=== PATIENT | male | born 1950 | race Caucasian/White ===

== ENCOUNTER 2017-12-01 19:43 | Inpatient (IN) | payer MEDICARE, OTHER ==
[~2017-12-01] VITALS: Ht 175.3 cm; Wt 127.1 kg
[~2017-12-01 19:43] MED LIST: ATOR40TA; Aspir 8181 MG; Ativan1 MG PO; CEPH500 PO; ENAL2.5; ESOM20 PO; FURO20; HYDR10 PO; Humalog100 UNIT/1 SC; INSDET100 SC; LOSARTAN POTAS100 MG PO; METO25ER PO; OMEP20ER; PIOG30 PO; ROSI4; SACC250C PO; SPIHYD PO; TAMS.4ER PO; VERA240ERA
[2017-12-01] MEDS ORDERED: FURO20 PO (19:52)
[2017-12-01 20:11] LABS: BASOPHILS ABSOLUTE AUTO 0.04 K/mm3 (0.00-0.23); BASOPHILS PERCENT AUTO 1 % (0-2); EOSINOPHILS ABSOLUTE AUTO 0.13 K/mm3 (0.00-0.68); EOSINOPHILS PERCENT AUTO 2 % (0-6); Hematocrit 43.9 % (37.0-53.0); Hemoglobin 14.9 g/dL (13.5-17.5); IMMATURE GRAN ABSOLUTE AUTO 0.02 K/mm3 (0.00-0.10); IMMATURE GRAN PERCENT AUTO 0 % (0-1); LYMPHOCYTES ABSOLUTE AUTO 1.63 K/mm3 (0.84-5.20); LYMPHOCYTES PERCENT AUTO 28 % (21-46); MONOCYTES ABSOLUTE AUTO 0.75 K/mm3 (0.16-1.47); MONOCYTES PERCENT AUTO 13 % (4-13); Mean Corpuscular HGB 30.2 pg (26.0-34.0); Mean Corpuscular HGB Conc 33.9 g/dL (31.5-36.5); Mean Corpuscular Volume 89 fL (80-100); Mean Platelet Volume 10.2 fL (9.1-12.4); NEUTROPHILS ABSOLUTE AUTO 3.18 K/mm3 (1.96-9.15); NEUTROPHILS PERCENT AUTO 55 % (41-73); Platelet Count 206 K/mm3 (150-400); RDW Coefficient Variation 12.3 % (11.7-14.2); RDW Standard Deviation 40.1 fL (35.1-46.3); Red Blood Cell Count 4.94 M/mm3 (4.30-5.90); White Blood Cell Count 5.75 K/mm3 (4.00-11.30)
[2017-12-01 20:25] LABS: Alanine Aminotransfer (ALT/SGP 21 U/L (12-78); Albumin, Blood 3.3 g/dL (3.4-5.0); Albumin/Globulin Ratio 0.7 (0.8-1.8); Alk Phos 77 U/L (50-136); Anion Gap 8 mmol/L (6-16); Aspartate Aminotrans (AST/SGOT 11 U/L (12-37); Bilirubin, Total 0.5 mg/dL (0.1-1.0); Blood Urea Nitrogen 31 mg/dL (8-24); CO2, Blood 30 mmol/L (21-32); Calcium, Blood 8.8 mg/dL (8.5-10.1); Chloride, Blood 99 mmol/L (98-108); Creatinine, Blood 1.24 mg/dL (0.60-1.20); Globulin, Blood 4.6 g/dL (2.2-4.0); Glomerular Filtration Rate >60 (60-); Glucose, Blood 191 mg/dL (70-99); Potassium, Blood 3.7 mmol/L (3.5-5.5); Sodium, Blood 137 mmol/L (136-145); Total Protein, Blood 7.9 g/dL (6.4-8.2); Troponin I <0.015 ng/mL (0.000-0.040)
[2017-12-01] MEDS ORDERED: ESOM20 PO (23:19)
[2017-12-02 04:13] LABS: Anion Gap 6 mmol/L (6-16); Blood Urea Nitrogen 27 mg/dL (8-24); Bun/Creatinine Ratio 24.3 (12.0-20.0); CO2, Blood 30 mmol/L (21-32); CPK Creatine Kinase 78 U/L (39-308); Calcium, Blood 8.6 mg/dL (8.5-10.1); Chloride, Blood 102 mmol/L (98-108); Creatine Kinase MB Index 1.3 (0.0-4.0); Creatinine, Blood 1.11 mg/dL (0.60-1.20); Glomerular Filtration Rate >60 (60-); Glucose, Blood 144 mg/dL (70-99); Potassium, Blood 3.7 mmol/L (3.5-5.5); Sodium, Blood 138 mmol/L (136-145); Troponin I <0.015 ng/mL (0.000-0.040)
[2017-12-03] MEDS ORDERED: AMLO10 PO (09:34)
[2017-12-03] MEDS ORDERED: Nitroglycerin0.4 MG SL (09:35)
== END 2017-12-03 10:54 | disposition home or self-care (01) | DRG 305 ==
LOC: ER 19:43 → ICUW 21:34 → MEDS 12-02 20:54 → ENPENDDIS 12-03 09:49 → MEDS 12-03 10:54
PROVIDERS: Emergency Medicine; Internal Medicine
PROC: 3E0234Z Introduction of Serum, Toxoid and Vaccine into Muscle, Percutaneous Approach (ICD-10-PCS; principal; 2017-12-02)
DX: I16.0 Hypertensive urgency (principal); Z68.41 Body mass index [BMI] 40.0-44.9, adult; E11.9 Type 2 diabetes mellitus without complications; Z95.1 Presence of aortocoronary bypass graft; E78.5 Hyperlipidemia, unspecified; G47.33 Obstructive sleep apnea (adult) (pediatric); Z23 Encounter for immunization; I25.10 Atherosclerotic heart disease of native coronary artery without angina pectoris; E66.9 Obesity, unspecified
CPT/HCPCS: 36415; 71046; 80048; 80053; 82550; 82553; 82947; 84484; 85025; 93005; 93010; 93306; 96365; 96366; 96375; 99285; J0360; J1170; J1650; J1815

== ENCOUNTER 2020-02-28 08:02 | Day surgery (SDC) | payer MEDICARE, OTHER ==
[~2020-02-28] VITALS: Ht 177.8 cm; Wt 128.2 kg
[~2020-02-28 08:02] MED LIST changes: +AMLO10 PO; +ATOR20 PO; +FURO20 PO; +Humalog100 UNIT/1; +INSULANPEN SC; +METO100 PO; +Nitroglycerin0.4 MG SL; +SILDENAFIL20 MG PO; +XARELTO20 MG PO
--- NOTE | 2020-02-28 10:23 | NUR ---
02/28/20 1023 Verena New V PT RESTING DOWN IN SDU, VSS, PT STATES HE IS "TIRED" AND "WANTS TO NAP". D/C INSTRUCTIONS COMPLETED. REPORT GIVEN TO [facility] [place]
== END 2020-02-28 10:30 | disposition home or self-care (01) ==
LOC: ORSCSDS 08:02
PROVIDERS: Surgery
PROC: 0DJD8ZZ Inspection of Lower Intestinal Tract, Via Natural or Artificial Opening Endoscopic (ICD-10-PCS; principal; 2020-02-28 09:15)
DX: Z12.11 Encounter for screening for malignant neoplasm of colon (principal); K57.30 Diverticulosis of large intestine without perforation or abscess without bleeding; G47.33 Obstructive sleep apnea (adult) (pediatric); I10 Essential (primary) hypertension; I25.10 Atherosclerotic heart disease of native coronary artery without angina pectoris; K21.9 Gastro-esophageal reflux disease without esophagitis; E11.9 Type 2 diabetes mellitus without complications; E66.01 Morbid (severe) obesity due to excess calories; Z68.41 Body mass index [BMI] 40.0-44.9, adult; Z79.899 Other long term (current) drug therapy; Z79.82 Long term (current) use of aspirin
CPT/HCPCS: 82947; J2704; J7120

== ENCOUNTER 2021-04-23 06:32 | Day surgery (SDC) | payer MEDICARE, OTHER ==
[~2021-04-23] VITALS: Ht 177.8 cm; Wt 130.2 kg
[2021-04-23] MEDS ORDERED: METO100 PO (06:47)
== END 2021-04-23 08:49 | disposition home or self-care (01) ==
LOC: ORSCSDS 06:32
DX: H02.831 Dermatochalasis of right upper eyelid (principal); H02.834 Dermatochalasis of left upper eyelid; I10 Essential (primary) hypertension; E11.9 Type 2 diabetes mellitus without complications; I25.10 Atherosclerotic heart disease of native coronary artery without angina pectoris; Z79.4 Long term (current) use of insulin; Z79.899 Other long term (current) drug therapy
CPT/HCPCS: 82947; A9270; J2250; J2704; J7040

== ENCOUNTER 2021-05-23 08:03 | Day surgery (SDC) | payer MEDICARE, OTHER | END 2021-05-23 18:37 | disposition home or self-care (01) | LOC: ATC 08:03 | DX: U07.1 COVID-19 (principal); E11.9 Type 2 diabetes mellitus without complications; I48.91 Unspecified atrial fibrillation; I10 Essential (primary) hypertension; E78.5 Hyperlipidemia, unspecified; I25.10 Atherosclerotic heart disease of native coronary artery without angina pectoris; E66.01 Morbid (severe) obesity due to excess calories; Z90.49 Acquired absence of other specified parts of digestive tract; Z95.1 Presence of aortocoronary bypass graft; Z79.01 Long term (current) use of anticoagulants; Z79.4 Long term (current) use of insulin; Z88.6 Allergy status to analgesic agent; Z88.1 Allergy status to other antibiotic agents; Z88.8 Allergy status to other drugs, medicaments and biological substances | CPT/HCPCS: 96365; Q0243 ==

== ENCOUNTER 2021-05-29 09:17 | Emergency (ER) | payer MEDICARE, OTHER ==
[~2021-05-29] VITALS: Ht 175.3 cm; Wt 127.0 kg
== END 2021-05-29 11:59 | disposition home or self-care (01) ==
LOC: ER 09:17
DX: U07.1 COVID-19 (principal); J12.82 Pneumonia due to coronavirus disease 2019; I10 Essential (primary) hypertension; E11.9 Type 2 diabetes mellitus without complications; I25.10 Atherosclerotic heart disease of native coronary artery without angina pectoris; E78.5 Hyperlipidemia, unspecified; G47.33 Obstructive sleep apnea (adult) (pediatric); Z88.8 Allergy status to other drugs, medicaments and biological substances; Z79.899 Other long term (current) drug therapy; Z79.4 Long term (current) use of insulin; Z79.01 Long term (current) use of anticoagulants
CPT/HCPCS: 82947; 93005; 93010; 99284-25

== ENCOUNTER 2022-07-29 13:21 | Emergency (ER) | payer MEDICARE, OTHER ==
[~2022-07-29] VITALS: Ht 175.3 cm; Wt 122.5 kg
[2022-07-29 14:11] LABS: BASOPHILS ABSOLUTE AUTO 0.06 K/mm3 (0.00-0.23); BASOPHILS PERCENT AUTO 1 % (0-2); EOSINOPHILS ABSOLUTE AUTO 0.18 K/mm3 (0.00-0.68); EOSINOPHILS PERCENT AUTO 3 % (0-6); Hematocrit 42.7 % (37.0-53.0); Hemoglobin 14.7 g/dL (13.5-17.5); IMMATURE GRAN ABSOLUTE AUTO 0.02 K/mm3 (0.00-0.10); IMMATURE GRAN PERCENT AUTO 0 % (0-1); LYMPHOCYTES ABSOLUTE AUTO 1.36 K/mm3 (0.84-5.20); LYMPHOCYTES PERCENT AUTO 20 % (21-46); MONOCYTES ABSOLUTE AUTO 0.66 K/mm3 (0.16-1.47); MONOCYTES PERCENT AUTO 10 % (4-13); Mean Corpuscular HGB 32.5 pg (26.0-34.0); Mean Corpuscular HGB Conc 34.4 g/dL (31.5-36.5); Mean Corpuscular Volume 94 fL (80-100); Mean Platelet Volume 9.8 fL (9.1-12.4); NEUTROPHILS PERCENT AUTO 67 % (41-73); Platelet Count 175 K/mm3 (150-400); RDW Coefficient Variation 14.3 % (11.7-14.2); RDW Standard Deviation 49.2 fL (35.1-46.3); Red Blood Cell Count 4.53 M/mm3 (4.30-5.90); White Blood Cell Count 6.98 K/mm3 (4.00-11.30)
[2022-07-29 14:32] LABS: Albumin, Blood 2.8 g/dL (3.4-5.0); Albumin/Globulin Ratio 0.7 (0.8-1.8); Bilirubin, Total 0.8 mg/dL (0.1-1.0); Bun/Creatinine Ratio 19.3 (12.0-20.0); Calcium, Blood 8.9 mg/dL (8.5-10.1); Creatinine, Blood 1.4 mg/dL (0.60-1.20); Globulin, Blood 3.9 g/dL (2.2-4.0); Potassium, Blood 4.3 mmol/L (3.5-5.5); Total Protein, Blood 6.7 g/dL (6.4-8.2)
== END 2022-07-29 18:11 | disposition home or self-care (01) ==
LOC: ER 13:21
PROVIDERS: Physician Assistant
DX: K92.1 Melena (principal); I25.10 Atherosclerotic heart disease of native coronary artery without angina pectoris; I10 Essential (primary) hypertension; E11.9 Type 2 diabetes mellitus without complications; Z88.5 Allergy status to narcotic agent; Z79.899 Other long term (current) drug therapy; Z79.4 Long term (current) use of insulin; Z79.01 Long term (current) use of anticoagulants
CPT/HCPCS: 36415; 74177; 80053; 83605; 83690; 85025; Q9967

== ENCOUNTER 2022-08-28 14:08 | Day surgery (SDC) | payer MEDICARE, OTHER ==
[~2022-08-28] VITALS: Ht 175.3 cm; Wt 125.6 kg
== END 2022-08-28 16:27 | disposition home or self-care (01) ==
LOC: ORSCSDS 14:08
PROVIDERS: Surgery
PROC: 0DJD8ZZ Inspection of Lower Intestinal Tract, Via Natural or Artificial Opening Endoscopic (ICD-10-PCS; principal; 2022-08-28 15:30)
DX: K62.5 Hemorrhage of anus and rectum (principal); K64.8 Other hemorrhoids; K57.30 Diverticulosis of large intestine without perforation or abscess without bleeding; I48.91 Unspecified atrial fibrillation; I25.10 Atherosclerotic heart disease of native coronary artery without angina pectoris; E11.9 Type 2 diabetes mellitus without complications; E78.5 Hyperlipidemia, unspecified; I10 Essential (primary) hypertension; G47.33 Obstructive sleep apnea (adult) (pediatric); Z79.4 Long term (current) use of insulin; Z79.899 Other long term (current) drug therapy
CPT/HCPCS: 82947; J0330; J0461; J2405; J2704; Q9968

== ENCOUNTER 2023-04-26 12:00 | Inpatient (IN) | payer MEDICARE ==
[~2023-04-26] VITALS: Ht 175.3 cm; Wt 121.0 kg
[2023-04-26 13:12] LABS: BASOPHILS ABSOLUTE AUTO 0.06 K/mm3 (0.00-0.23); BASOPHILS PERCENT AUTO 1 % (0-2); EOSINOPHILS ABSOLUTE AUTO 0.04 K/mm3 (0.00-0.68); EOSINOPHILS PERCENT AUTO 1 % (0-6); Hematocrit 45.2 % (37.0-53.0); Hemoglobin 15.7 g/dL (13.5-17.5); IMMATURE GRAN ABSOLUTE AUTO 0.03 K/mm3 (0.00-0.10); IMMATURE GRAN PERCENT AUTO 0 % (0-1); LYMPHOCYTES ABSOLUTE AUTO 1.06 K/mm3 (0.84-5.20); LYMPHOCYTES PERCENT AUTO 13 % (21-46); MONOCYTES ABSOLUTE AUTO 0.81 K/mm3 (0.16-1.47); MONOCYTES PERCENT AUTO 10 % (4-13); Mean Corpuscular HGB Conc 34.7 g/dL (31.5-36.5); Mean Corpuscular Volume 92 fL (80-100); NEUTROPHILS ABSOLUTE AUTO 6.05 K/mm3 (1.96-9.15); NEUTROPHILS PERCENT AUTO 75 % (41-73); Platelet Count 186 K/mm3 (150-400); RDW Coefficient Variation 13.7 % (11.7-14.2); RDW Standard Deviation 46.7 fL (35.1-46.3); Red Blood Cell Count 4.91 M/mm3 (4.30-5.90); White Blood Cell Count 8.05 K/mm3 (4.00-11.30)
[2023-04-26 14:22] LABS: Albumin, Blood 2.6 g/dL (3.4-5.0); Albumin/Globulin Ratio 0.6 (0.8-1.8); Bilirubin, Total 0.9 mg/dL (0.1-1.0); Bun/Creatinine Ratio 21.6 (12.0-20.0); Calcium, Blood 8.2 mg/dL (8.5-10.1); Creatinine, Blood 1.39 mg/dL (0.60-1.20); Globulin, Blood 4.1 g/dL (2.2-4.0); Potassium, Blood 3.2 mmol/L (3.5-5.5); Total Protein, Blood 6.7 g/dL (6.4-8.2)
[2023-04-26 17:57] VITALS: BP 245/145
[2023-04-26 18:34] VITALS: BP 182/110
--- NOTE | 2023-04-26 18:51 | NUR ---
PT ARRIVED IN THE ROOM PCU 08 VIA STRETCHER FROM ERD REPORT RECEIVED FROM NITA HANLEY. PT IS HERE FOR HTN URGENCY AND ABD PAIN. PT IS ALERT AND ORIENTED X4 ABLE TO MAKE NEEDS KNOWN, SBA FOR TRANSFERS. VITALS HRR AFIOB 70-80'S, SBP'S 200-250'S SATS ABOVE 95% ON RA, AFEBRILE. HYDRALAZINE 10MG IV WAS GIVEN AND FENTANYL 25MCG UPON ARRIVAL 05/07 PT WAS C/O ABD PAIN. SBP WENT DOWN TO 177 LOWEST THEN WENT BACK AGAIN TO 190'S. PAIN WAS DOWN TO 3/10 THEN CAME BACK UP AGAIN TO [address] NOVAK ORDER TO INCREASE FENTANYL TO 50MCG ADDITIONAL DOSE TO BE GIVEN, METOPROLOL IV 5MG WAS GIVEN WELL FOR THE ELEVATED BLOOD PRESSURE. PT HAS SOME NAUSEA WITH NO VOMITING AND SOME SOB WITH ABD PAIN. PT IN BED RIGHT NOW TRYING TO GET A COMFORTABLE POSITION. 1/2 NS AT 75MLS/HR RUNNING ALONG WITH POTASSIUM IV. WILL REPORT TO ONCOMING SHIFT
[2023-04-26 20:15] VITALS: BP 214/121
--- NOTE | 2023-04-26 21:20 | NUR ---
UPDATE CALLED INTO ROOM BY BURR BENCH HANDTALON PINZON. PT IS NOW DEMONSTRATING INCREASING CONFUSION WELL EXPRESSIONAL APHASIA. A/Ox2, PT PAUSES A LOT BETWEEN ANSWERS AND IS HAVING A DIFFICULT TIME FINDING WORDS. PUPILS REMAIN EQUAL AND REACTIVE, PT DENIES ANY WEAKNESS OR SENSATION LOSS. DR. MORRELL INFORMED OF CHANGE IN PT'S CONDITION. DR. CHA TO BEDSIDE TO EXAMINE PT. PER MD ORDER, A STAT CT W/O CONTRAST IS TO BE DONE. NO OTHER ORDERS AT THIS TIME.
[2023-04-26 22:00] VITALS: BP 161/96
--- NOTE | 2023-04-26 23:50 | NUR ---
UPDATE PT'S MENTATION HAS IMPROVED TO MORE HIS BASELINE AT START OF SHIFT. A/Ox4 AND COOPERATIVE WITH CARE. ABLE TO ANSWER QUESTIONS APPROPRIATELY NOW. DENIES ANY WEAKNESS, TINGLING, OR SENSATION LOSS. GROSS MOVEMENTS WELL PUPILS ARE EQUAL BILAT. DR. KIRSTEN PATEL INFORMED OF CT RESULTS. NO FURTHER ORDERS AT THIS TIME.
[2023-04-26 23:54] VITALS: BP 197/84
[2023-04-27] VITALS (20 sets, daily range): BP systolic 134–200; BP diastolic 74–112
[2023-04-27 02:17] LABS: Hematocrit 48.3 % (37.0-53.0); Hemoglobin 16.7 g/dL (13.5-17.5); Mean Corpuscular HGB 31.8 pg (26.0-34.0); Mean Corpuscular HGB Conc 34.6 g/dL (31.5-36.5); Mean Corpuscular Volume 92 fL (80-100); Mean Platelet Volume 10.7 fL (9.1-12.4); Platelet Count 182 K/mm3 (150-400); RDW Coefficient Variation 13.7 % (11.7-14.2); RDW Standard Deviation 46.7 fL (35.1-46.3); Red Blood Cell Count 5.25 M/mm3 (4.30-5.90); White Blood Cell Count 17.25 K/mm3 (4.00-11.30)
[2023-04-27 02:35] LABS: Bun/Creatinine Ratio 19.9 (12.0-20.0); Calcium, Blood 9.1 mg/dL (8.5-10.1); Creatinine, Blood 1.36 mg/dL (0.60-1.20); Potassium, Blood 4.1 mmol/L (3.5-5.5)
[2023-04-27 02:36] LABS: BAND PERCENT MAN 4 % (0-8); BASOPHILS PERCENT MAN 0 % (0-2); EOSINOPHILS PERCENT MAN 0 % (0-6); LYMPHOCYTES ABSOLUTE MAN 0.34 K/mm3 (0.84-5.20); LYMPHOCYTES PERCENT MAN 2 % (21-46); MONOCYTES ABSOLUTE MAN 1.38 K/mm3 (0.16-1.47); MONOCYTES PERCENT MAN 8 % (4-13); NEUTROPHILS ABSOLUTE MAN 15.52 K/mm3 (1.96-9.15); SEG NEUTROPHILS PERCENT MAN 86 % (41-73); TOTAL CELLS COUNTED 100
--- NOTE | 2023-04-27 06:30 | NUR ---
SHIFT SUMMARY PT HAS REMAINED A/Ox3-4 AND COOPERATIVE WITH CARE SINCE HIS EPISODE OF CONFUSION EARLIER IN THE SHIFT. SEE UPDATE NOTES FOR DETAILS. ANSWERS QUESTIONS APPROPRIATELY AND ABLE TO MAKE HIS NEEDS KNOWN. CARDIAC, REMAINS IN AFIB 80-100'S WITH NO C/O CP OR PRESSURE. SBP REMAINS HIGH AVERAGING IN THE 170'S. ANT-HYPERTENSIVE MEDICATIONS GIVEN VIA EMAR AND PER PARAMETERS. RESPIRATORY, MAINTAINS SPO2 >95% ON 2L VIA NC. REPORTS SOME SOB WITH EXERTION, BUT RECOVERS QUICKLY WHEN AT REST. LS CLEAR T/O, BUT DIM IN BASES. GI/, ABLE TO IND USE URINAL AT BEDSIDE PRODUCING YELLOW COLORED URINE. CONTINUES TO REPORT INTERMITTENT EPISODES OF CENTRAL ABD PAIN. PRN FENTANYL ADEQUATELY MANAGED PT'S PAIN T/O THE NIGHT. ABULATED TO RECLINER FOR SECOND PART OF SHIFT TO "FEEL MORE COMFORTABLE". 1/2 NS INFUSING FLUIDS PER EMAR.ASSESSED PT FOR RISKS OF ANY IGNITION SOURCES WELL BEHAVIORS FOR INCREASED RISKS OF FIRE DANGER. PT EDUCATED ON COMMON SOURCES OF IGNITION WELL NEED TO KEEP A SAFE ENVIRONMENT. PT VOICED UNDERSTANDING. NEW ORDERS AT THIS TIME, WILL REPORT TO ONCOMING RN. BHARAT NICOLAS OF THIS NOTE.
[2023-04-27] MEDS ORDERED: ELIQUIS5 M2 PO (08:55)
[2023-04-27] MEDS ORDERED: HYDCHL25 PO (08:56)
[2023-04-27] MEDS ORDERED: JARDIANCE10 MG PO (08:56)
[2023-04-27] MEDS ORDERED: LOSA25 PO (08:58)
[2023-04-27] MEDS ORDERED: HUMALOG KW100 UNIT/1 SC (09:00)
[2023-04-27] MEDS ORDERED: INSDET100 SC (09:05)
--- NOTE | 2023-04-27 10:24 | NUR ---
AM NOTE: PATIENT ALERT AND ORIENTED, ANXIOUS. HOH. ELLIS, WEARING GLASSES. SBA TO RECLINER/BATHROOM. COMPLAINS OF ABDOMINAL PAIN THIS AM 7/10 ACHE. DENIES SHARP SHOOTING PAINS. BOWEL TONES PRESENT. PATIENT DENIES NEED FOR STOOL SOFTNERS THIS AM. EATING SMALL AMOUNT OF BREAKFAST. PASSING GAS. ABDOMINAL ULTRASOUND COMPLETED AROUND 0715 THIS AM. ON 2L NASAL CANNULA SATING MID-HIGH 90'S. EXPRESSES FEELING SOB WITH ABDOMINAL PAIN/ANXIETY. EVEN AND UNLABORDED BREATHS AT REST. LUNGS SOUNDING CLEAR AND DIM IN BASES. TELE SHOWING AFIB WITH HR 80-100'S. BP IMPROVING. DENIES CHEST PAIN/PRESSURE/PALPITATIONS. PPP. TREASURY ANALYST IN THIS AM, UNABLE TO COMPLETE EXAM, PATIENT SOB AND ANXIOUS LAYING ON LEFT SIDE. DR. NOVAK IN AND AWARE OF ECHO ATTEMPT THIS AM. PLAN TO SEE IF TREASURY ANALYST CAN COME BACK AND ATTEMPT TEST AGAIN. ECHO READING ROOM CALLED AND UPDATED. USING URINAL AT BEDSIDE. PT/OT ORDERS IN PLACE. PATIENT MORE COMFORTABLE IN RECLINER. CALL LIGHT IN REACH. FAMILY AT BEDSIDE THIS AM.
--- NOTE | 2023-04-27 12:23 | NUR ---
ECHO COMPLETED. AFTERNOON VITALS SHOWING BP ELEVATED WITH SBP 181. WILL CONTINUE TO RECHECK AND GIVE BP MEDS NEEDED. PATIENT COMPLAINS OF NAUSEA THIS AFTERNOON, TAKING ONE BITE OF LUNCH AND VOMITTING SMALL AMOUNT. IV ZOFRAN GIVEN PER EMAR WITH GOOD RELIEF. PATIENT SLEEPING IN RECLINER AT THIS TIME. WILL CONTINUE TO MONITOR BP.
--- NOTE | 2023-04-27 16:12 | NUR ---
ECHO RESULTS IN. DR. NOVAK AWARE OF ECHO RESULTS. DR. NOVAK CALLED TO UPDATE ON PATIENT HAVING HEART BURN, MESSAGE LEFT, PATIENT REQUESTING TUMS.
--- NOTE | 2023-04-27 16:51 | NUR ---
PT TO CT AT THIS TIME.
--- NOTE | 2023-04-27 17:13 | NUR ---
PATIENT BACK FROM CT. DR. NOVAK IN ROOM TO UPDATE PATIENT AND FAMILY, ECHO RESULTS REVIEWED. PATIENT TO FOLLOW UP WITH CARDIOLOGY UPON DISCHARGE.
--- NOTE | 2023-04-27 18:17 | NUR ---
SEE PREVIOUS NOTES. NO ACUTE CHANGES. PATIENT CONTINUES HAVE ABDOMINAL PAIN HE DESCRIBES CENTRAL AND ACHEY. PAIN HAS BEEN ON AND OFF THROUGHOUT SHIFT. RELIEVED WITH IV FENTANYL. NAUSEA ON AND OFF WITH PAIN. MEDICATED PER EMAR WITH RELIEF. FAMILY AT BEDSIDE. BP STABLE. RELAXING IN RECLINER AT THIS TIME. NS DC'D AND IV LASIX GIVEN PER DR. NOVAK ORDERS.
--- NOTE | 2023-04-27 18:43 | NUR ---
ABDOMINAL CTA RESULTS CALLED IN TO DR. NOVAK. THIS RN READ DR. 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 NO NEW ORDERS FOR THIS RN TO PLACE. DAY AND ENROLLMENT REPRESENTATIVE FUEL OIL CLERK UPDATED.
[2023-04-27 19:52] LABS: International Normalized Ratio 1.34; Prothrombin Time Results 13.8 Sec (9.7-11.5)
--- NOTE | 2023-04-27 22:48 | NUR ---
DOCTOR PETROS GIVEN UPDATE, TO MONITOR I&O CLOSELY AND KEEP PATIENT BEDREST DUE TO THROMBOSIS, WILL PLACE SÁNCHEZ CATH. PATIENT STOOD AT SIDE OF BED TO VOID WITH GREAT EFFORT AND RESULTING IN INCREASE IN SOB, PAIN, AND BP. ABD REMAINS SOFT AND ROUND.
[2023-04-27 23:39] LABS: Source, Urine Foley catheter
[2023-04-27 23:41] LABS: Bilirubin, Urine Neg (Neg); Blood, Urine 5+ (Neg); Glucose Qualitative, Urine 4+ (Neg); Ketones, Urine 1+ (Neg); Leukocyte Esterase, Urine Neg (Neg); Nitrite, Urine Neg (Neg); Protein, Urine 3+ (Neg); Urobilinogen, Urine NORM (Normal)
[2023-04-27 23:48] LABS: Appearance, Urine Hazy (Clear); Color, Urine Yellow (P-Yellow)
[2023-04-27 23:49] LABS: Amorphous Light (0-Heavy); Bacteria Not Seen /hpf; Red Blood Cells, Urine TNTC /hpf (0-2); Squamous Epithelial Cells Not Seen /hpf (Few); White Blood Cells, Urine Not Seen /hpf (0-5)
[2023-04-28] VITALS (37 sets, daily range): BP systolic 102–191; BP diastolic 62–107
--- NOTE | 2023-04-28 00:52 | NUR ---
AT 2130 PATIENT ARRIVED TO ICU 9 VIA W/C FROM PCU. ABLE TO TRANSFER SELF TO ICU BED AND PLACED ON ICU MONITOR. ABD ROUND AND SOFT, C/O ABD PAIN WITH MOVEMENT. GOOD PAIN CONTROL WITH FENTANYL IV. PATIENT HAVING DIFFICULTY URINATING WITHOUT STANDING AT BEDSIDE, C/O INCREASED PAIN WHEN GETTING UP OUT OF BED. SÁNCHEZ PLACED TO HELP KEEP BLADDER EMPTY, AND TO MONITOR URINE OUTPUT CLOSELY. PATIENT UP TO BSC TO HAVE A BM, PASSING MEDIUM BROM HARD FORMED STOOL. PATIENT HAVING ABD PAIN WITH BM, PAIN RESOLVED WHEN BACK IN BED, SÁNCHEZ CONTINUES TO DRAIN GOOD AMT OF CLEAR YELLOW URINE. ABD REMAINS ROUND AND SOFT.
--- NOTE | 2023-04-28 01:49 | NUR ---
TRANSFER OF CARE NOTE GAVE REPORT TO EXPERIMENTAL PHYSICISTTALON ROWE, PT SHORTLY ARRIVED TO ICU 9 ~2130 ON 04/27/23. A/Ox4 AND COOPERATIVE WITH CARE. ANSWERS QUESTIONS APPROPRIATELY AND ABLE TO MAKE HIS NEEDS KNOWN. NO MENTATION CHANGES SIMIALR TO THE ONES ON 04/26/23. CARDIAC, REMAINS IN AFIB 80-100'S WITH NO REPORTS OF CP OR PRESSURE. SBP CONTINUES TO BE ELEAVTED RANGING 170-190'S. PRN HYDRALAZINE WELL LOPRESSOR AVAILABLE PER EMAR. RESPIRATORY, MAINTAINS SPO2 >95% ON 2L VIA NC. REPORTS SOB WITH EPISODES OF BREAKTHROUGH PAIN. SOME DYSPNEA NOTED WITH EXERTION WELL. LS CLEAR BUT DIM IN BASES. GI/, CONTINUES TO REPORT MILD TO MODERATE CENTRAL ABD PAIN. PAIN MANAGED WELL PER EMAR. BS PRESENT IN ALL QUADRANTS AND PT CONTINUES TO PASS GAS. PT TRANSFERED TO ICU FOR CLOSER MONITORING ORDERED BY DR. BEASLEY WELL DR. MORRELL. GIVEN RECENT ABD CT/US AND ECHO PERFORMED ON 04/27/23, PT TO BE COBRA TRANSFERED TO ANOTHER FACILITY FOR CONTINUATION OF CARE. NO NEW ORDERS AT THIS TIME. BHARAT NICOLAS UPON TRANSFER TO ICU 9.
[2023-04-28 02:11] LABS: Hematocrit 44.6 % (37.0-53.0); Hemoglobin 15.9 g/dL (13.5-17.5); Mean Corpuscular HGB 32.3 pg (26.0-34.0); Mean Corpuscular HGB Conc 35.7 g/dL (31.5-36.5); Mean Corpuscular Volume 91 fL (80-100); Mean Platelet Volume 10.3 fL (9.1-12.4); Platelet Count 165 K/mm3 (150-400); RDW Coefficient Variation 13.9 % (11.7-14.2); Red Blood Cell Count 4.93 M/mm3 (4.30-5.90)
[2023-04-28 02:33] LABS: Albumin, Blood 2.6 g/dL (3.4-5.0); Albumin/Globulin Ratio 0.6 (0.8-1.8); Bilirubin, Total 1.5 mg/dL (0.1-1.0); Bun/Creatinine Ratio 21.3 (12.0-20.0); Calcium, Blood 8.8 mg/dL (8.5-10.1); Creatinine, Blood 1.5 mg/dL (0.60-1.20); Globulin, Blood 4.4 g/dL (2.2-4.0); Potassium, Blood 3.5 mmol/L (3.5-5.5)
--- NOTE | 2023-04-28 05:48 | NUR ---
SUMMARY PATIENT TRANSFER IN TO ICU AT 2130 FROM PCU, HAVING HYPERTENSION, INCREASED ABD PAIN AND PREP FOR TRANSFER TO ANOTHER FACILITY DUE TO THROMBOSIS IN MESENTERIC ARTERY. HEPARIN STARTED IN PCU, TITRATED DOWN TO 17 UNITS/KG PER PHARMACY CONSULT. DECIDING ON MONITORING PATIENT HERE DUE TO NON SURGICAL PER PROVIDENCE VASCULAR SURGEON. PATIENTS ABD REMAINED ROUND AND SOFT T/O NIGHT, SLIGHTLY TENDER WITH PALPATION TO RIGHT LOWER QUAD. UP TO BSC ONCE TO PASS MED HARD FORMED BROWN BM. SÁNCHEZ DRAINING YELLOW TO ELIAS URINE. PATIENT MEDICATED ONCE WITH FENTANYL AND ZOFRAN ON ARRIVAL TO UNIT. PATIENT DENIES ABD PAIN AT THIS TIME, BUT FEELS THAT HE MAY NEED TO HAVE ANOTHER BM SOON. PATIENT NPO AT THIS TIME WITH FEW ICE CHIPS TO MOISTEN MOUTH. HYPERTENSION CONTINUES. AFIB CONTINUES.
--- NOTE | 2023-04-28 06:57 | NUR ---
PATIENT UP TO BSC WITH ASSISTANCE, C/O ABD PAIN WITH GETTING UP, AND C/O ABD PAIN WITH ATTEMPTING TO HAVE BM. PLAN TO ASK FOR SUPPOSITORY OR ENEMA TO ASSIST WITH BM DUE TO HARD FORMED STOOL.
--- NOTE | 2023-04-28 07:55 | NUR ---
ASSUMED CARE / DR BEASLEY: REPORT RECEIVED FROM JILLIAN Gaona RN. ASSUMED CARE OF THIS PT AT APPROX 0700. ON ASSESSMENT, THE PT IS AWAKE, A&O TO ALL. HE HAS CURRENTLY C/O ABD PAIN RATED 3/10 WHICH HE STS IS IMPROVED SINCE ADMISSION. LS DIM IN BASES, PT ON 2L NC W/ O2 SATS > 95%. DENIES SOB. MONITOR SHOWS AFIB W/ HR 80-90s, HTN IMPROVED SINCE ADMIT, SCHEDULED AM MEDS PER EMAR. BT HYPOACTIVE T/O, ABD SOFT/ TENDER TO PALPATION. ONE SMALL HARD BROWN BM LAST NIGHT PER REPORT, BOWEL CARE PER EMAR THIS AM. SKIN CONDITON OVERALL INTACT, PT REPOSITIONS SELF FOR COMFORT, REQUESTS HELP PRN. THE PT HAS BEEN EDUCATED ON RISKS R/T IGNITION SOURCES & RISK OF INJURY WHILE OXYGEN IS IN USE. PT DENIES SMOKING & PT VERBALIZES UNDERSTANDING. PROVIDER AT BEDSIDE THIS AM TO EVAL PT. SHE STS TO KEEP HIM NPO EXCEPT ICE CHIPS & SIPS OF WATER UNTIL EVALUATED BY DR BECERRIL. SHE IS CONCERNED THAT THIS PT MAY STILL NEED TO BE COBRA TRANSFERRED FOR HIGHER LEVEL OF CARE IF DR BECERRIL IS NOT ABLE TO ADDRESS THE SMA OCCLUSION. SHE STS OKAY TO ORDER SUPPOSITORY OR FLEETS ENEMA IF BOWEL CARE IS NOT EFFECTIVE FOR THIS PT. WILL CONTINUE TO MONITOR & UPDATE NEEDED.
--- NOTE | 2023-04-28 08:00 | NUR ---
ASSUMED CARE / DR BEASLEY: REPORT RECEIVED FROM JILLIAN Gaona RN. ASSUMED CARE OF THIS PT AT APPROX 0700. ON ASSESSMENT, THE PT IS AWAKE, A&O TO ALL. HE HAS CURRENTLY C/O ABD PAIN RATED 3/10 WHICH HE STS IS IMPROVED SINCE ADMISSION. LS DIM IN BASES, PT ON 2L NC W/ O2 SATS > 95%. DENIES SOB. MONITOR SHOWS AFIB W/ HR 80-90s, HTN IMPROVED SINCE ADMIT, SCHEDULED AM MEDS PER EMAR. BT HYPOACTIVE T/O, ABD SOFT/ TENDER TO PALPATION. ONE SMALL HARD BROWN BM LAST NIGHT PER REPORT, BOWEL CARE PER EMAR THIS AM. SKIN CONDITON OVERALL INTACT, PT REPOSITIONS SELF FOR COMFORT, REQUESTS HELP PRN. PROVIDER AT BEDSIDE THIS AM TO EVAL PT. SHE STS TO KEEP HIM NPO EXCEPT ICE CHIPS & SIPS OF WATER UNTIL EVALUATED BY DR BECERRIL. SHE IS CONCERNED THAT THIS PT MAY STILL NEED TO BE COBRA TRANSFERRED FOR HIGHER LEVEL OF CARE IF DR BECERRIL IS NOT ABLE TO ADDRESS THE SMA OCCLUSION. SHE STS OKAY TO ORDER SUPPOSITORY OR FLEETS ENEMA IF BOWEL CARE IS NOT EFFECTIVE FOR THIS PT. WILL CONTINUE TO MONITOR & UPDATE NEEDED.
--- NOTE | 2023-04-28 10:50 | NUR ---
DR BECERRIL: PROVIDER AT BEDSIDE THIS AM FOR CONSULTATION. HE HAS SPOKEN W/ THE PT REGARDING POSSIBLE ANGIOGRAM PROCEDURE FOR SMA OCCLUSION. THE PT IS UNSURE IF HE WOULD LIKE TO PROCEED & HAS REQUESTED SOME TIME TO CALL FAMILY FOR INPUT. DR BECERRIL SAYS TO KEEP THE PT NPO & HE WILL BE BACK LATER TO SPEAK W/ THE PT AGAIN REGARDING DECISION. NO OTHER CHANGES AT THIS TIME.
--- NOTE | 2023-04-28 13:05 | NUR ---
DR BECERRIL: PROVIDER AT BEDSIDE TO COMPLETE CONSENT FOR THIS PT. PLAN IS FOR ANGIOGRAM TO OCCUR AT APPROX 1530 THIS AFTERNOON.
--- NOTE | 2023-04-28 14:00 | NUR ---
"Spiritual Care Attempted | Palliative Nurse Request Pt. is somnolent and does not respond when I enter the room. Friend of Pt. is present and welcomed my visit. We agree to have this dental chairside assistant visit later when the Pt.is more alert. Will remain available to the Pt."
--- NOTE | 2023-04-28 15:12 | NUR ---
ANGIOGRAM: PT OUT OF ROOM TO SCREEN DOOR MAKER AT APPROX 1510 VIA BED.
--- NOTE | 2023-04-28 15:22 | NUR ---
pt has visitor or has been sleeping. Review of pt in rounds. Asked chapestheran and tre casillas to see pt. Will follow up with pt on choices and prognosis. After review suggest best paln is to talk after he gets spiritual support with hard decisions he needs to make.
--- NOTE | 2023-04-28 17:52 | NUR ---
RETURN FROM IT PROGRAM MANAGER / SHIFT SUMMARY: THE PT HAS RETURNED FROM THE IT PROGRAM MANAGER AT APPROX 1725. RIGHT GROIN PUNCTURE SITE W/ ANGIOSEAL USED. GROIN PRECAUTIONS IN PLACE W/ LIMITED ACTIVITY. SITE WNL; NO BLEEDING, BRUISING OR HEMATOMA FORMATION NOTED & SURROUNDING TISSUE IS SOFT TO PALPATION. LS REMAIN CLEAR, DIM IN BASES. PT ON 2L NC W/ O2 SATS > 95%. MONITOR SHOWS AFIB W/ HR 80-90s, BP STABLE. PT TOLERATING ICE CHIPS WELL AT THIS TIME, REMAINS TOO DROWSY FOR ADDITIONAL PO INTAKE AT THIS TIME. ABD REMAINS SOFT/ TENDER TO PALPATION. SÁNCHEZ CATHETER IN PLACE, DRAINING TEA-COLORED URINE IN ADEQUATE AMNTS. SKIN CONDITION OVERALL INTACT, PT TO LAY FLAT FOR 2 HRS POST-PROCEDURE, UNTIL 1930. WILL CONTINUE TO MONITOR & REPORT OFF TO ONCOMING RN.
--- NOTE | 2023-04-28 21:45 | NUR ---
ASSUMPTION OF CARE/ASSESSMENT: ASSUMED CARE OF PT AT 1900. PT SLEEPING IN BED BUT WAKES EASILY TO VERBAL STIMULI; PT IS A&O X 4, PLEASANT AND COOPERATIVE WITH CARE. PT CURRENTLY AFIB ON MONITOR WITH HR 70-80'S, SBP 120-130'S AND DENIES CHEST PAIN/PRESSURE AT THIS TIME. PT ON NC @ 2LPM; LUNG SOUNDS CLEAR WITH DIM BASES AND SPO2 98<. PT DENIES SOB AT THIS TIME. HYPOACTIVE BOWEL SOUNDS IN ALL QUADRANTS; UPON PALPATION, PT REPORTS 5/10 PAIN IN RUQ. PT DENIES MEDS AT THIS TIME. SÁNCHEZ IN PLACE AND DRAINING TO GRAVITY; URINE DARK YELLOW. PPP X 4, SKIN WARM AND INTACT. SMALL TURN TO LEFT SIDE AT 2129. R. FEMORAL ACCESS SITE IS WITHOUT BLEEDING/HEMATOMA AND IS SOFT, NON-TENDER. DR BEASLEY CALLED AROUND 1999 FOR UPDATE REGARDING PT CONDITION; NO NEW ORDERS AT THIS TIME. PT SON, VILLA, AT BEDSIDE WITH PT UNTIL AROUND 2144. PT BACK TO SLEEP AT THIS TIME, BED LOWERED, CALL LIGHT IN REACH, WILL CONTINUE TO MONITOR UNTIL ONCOMING RN ARRIVES.
[2023-04-29] VITALS (15 sets, daily range): BP systolic 99–173; BP diastolic 37–94
--- NOTE | 2023-04-29 05:18 | NUR ---
SHIFT SUMMARY: NO ACUTE CHANGES THROUGHOUT THE NIGHT; VSS THIS SHIFT. NO CHANGES IN PREVIOUS ASSESSMENTS. PT SLEEPING FOR MAJORITY OF THE NIGHT. ABD PAIN REMAINS 4-5/10 AND HAS NO WORSENED OVERNIGHT. PT REMAINED HEMODYNAMICALLY STABLE. R. FEMORAL SITE REMAINS UNCHANGED FROM LAST ASSESSMENT. HEPARIN GTT REMAINS @ 12 UNITS, 1/2 NS @ 125 MLS/HR. PT HAD 175 ML URINE OUTPUT THIS SHIFT. EDUCATION REGARDING IGNITION SOURCES AND FIRE SAFETY PROVIDED TO PT, ALONG WITH HOURLY ROUNDING FOR FIRE SAFETY. BED LOWERED, CALL LIGHT IN REACH, WILL CONTINUE TO MONITOR UNTIL ONCOMING RN ARRIVES.
[2023-04-29 06:26] LABS: Hematocrit 40.4 % (37.0-53.0); Hemoglobin 13.8 g/dL (13.5-17.5); Mean Corpuscular HGB 31.4 pg (26.0-34.0); Mean Corpuscular HGB Conc 34.2 g/dL (31.5-36.5); Mean Corpuscular Volume 92 fL (80-100); Mean Platelet Volume 10.6 fL (9.1-12.4); Platelet Count 142 K/mm3 (150-400); RDW Coefficient Variation 13.7 % (11.7-14.2); Red Blood Cell Count 4.39 M/mm3 (4.30-5.90); White Blood Cell Count 9.94 K/mm3 (4.00-11.30)
[2023-04-29 06:47] LABS: Albumin, Blood 2.2 g/dL (3.4-5.0); Albumin/Globulin Ratio 0.6 (0.8-1.8); Bilirubin, Total 1.1 mg/dL (0.1-1.0); Calcium, Blood 7.6 mg/dL (8.5-10.1); Creatinine, Blood 2.42 mg/dL (0.60-1.20); Globulin, Blood 3.7 g/dL (2.2-4.0); Potassium, Blood 3.4 mmol/L (3.5-5.5); Total Protein, Blood 5.9 g/dL (6.4-8.2)
--- NOTE | 2023-04-29 17:28 | NUR ---
SHIFT SUMMARY NO ACUTE CHANGES THIS SHIFT. PT HAS REMAINED ALERT AND ORIENTED WHEN AWAKE. PT SLEEPING OFF AND ON THIS AFTERNOON. PT ANSWERS QUESTIONS APPROPRIATELY. PT HAS COMPLAINED OF INCREASING ABD PAIN THIS AFTERNOON. PT MED PER EMAR. PT WITH MULTIPLE LOOSE/LIQUID BM'S THIS SHIFT. PT TAKING IN SMALL AMOUNTS OF CLEAR LIQ DIET THIS AFTERNOON. 1/2 NS INFUSING THROUGH PIV AT 125 ML/HR, AND HEPARIN GTT AT 14 UNITS/KG/HR. SÁNCHEZ IN PLACE WITH MINIMAL AMOUNT OF DARK YELLOW URINE OUTPUT NOTED. PT SON AT BESIDE MOST OF THIS SHIFT. PT UP TO RECLINER CHAIR MOST OF THIS SHIFT. WILL CONTINUE TO MONITOR AND REPORT OFF TO ONCOMING RN. NO IGNITION RISK NOTED.
[2023-04-29 18:25] LABS: BASOPHILS ABSOLUTE AUTO 0.04 K/mm3 (0.00-0.23); BASOPHILS PERCENT AUTO 0 % (0-2); EOSINOPHILS ABSOLUTE AUTO 0.03 K/mm3 (0.00-0.68); EOSINOPHILS PERCENT AUTO 0 % (0-6); Hematocrit 38.9 % (37.0-53.0); Hemoglobin 13.4 g/dL (13.5-17.5); IMMATURE GRAN ABSOLUTE AUTO 0.03 K/mm3 (0.00-0.10); IMMATURE GRAN PERCENT AUTO 0 % (0-1); LYMPHOCYTES ABSOLUTE AUTO 0.57 K/mm3 (0.84-5.20); LYMPHOCYTES PERCENT AUTO 5 % (21-46); MONOCYTES ABSOLUTE AUTO 1.18 K/mm3 (0.16-1.47); MONOCYTES PERCENT AUTO 11 % (4-13); Mean Corpuscular HGB 31.6 pg (26.0-34.0); Mean Corpuscular HGB Conc 34.4 g/dL (31.5-36.5); Mean Corpuscular Volume 92 fL (80-100); Mean Platelet Volume 11.2 fL (9.1-12.4); NEUTROPHILS ABSOLUTE AUTO 9.28 K/mm3 (1.96-9.15); NEUTROPHILS PERCENT AUTO 83 % (41-73); Platelet Count 143 K/mm3 (150-400); RDW Coefficient Variation 13.7 % (11.7-14.2); RDW Standard Deviation 46.6 fL (35.1-46.3); Red Blood Cell Count 4.24 M/mm3 (4.30-5.90); White Blood Cell Count 11.13 K/mm3 (4.00-11.30)
[2023-04-29 18:46] LABS: Bun/Creatinine Ratio 18.8 (12.0-20.0); Calcium, Blood 7.5 mg/dL (8.5-10.1); Creatinine, Blood 3.03 mg/dL (0.60-1.20); Potassium, Blood 3.3 mmol/L (3.5-5.5)
--- NOTE | 2023-04-29 20:45 | NUR ---
ASSUMED CARE PT IS A&O X4; SPO2 >92% ON RA; MAP >65. PT DENIES CP, SOB, OR NAUSEA. ABDOMINAL PAIN IS 7/10 FOR PT; MEDICATING PER ORDER. ABDOMEN IS NOT TENDER TO PALPATION, BT AUSCULTATED X4. PT HAD MULTIPLE EPISODES OF DIARRHEA T/O DAY PER REPORT AND ONE EPISODE FOR THIS RN. SÁNCHEZ PATENT AND DRAINING TO GRAVITY. PT'S SON AT BEDSIDE PLAYING CARDS W/ PT.
--- NOTE | 2023-04-29 21:56 | NUR ---
UPDATE DR BEASLEY CALLED TO HAVE HOSPITALIST PERFORM ABDOMINAL ASSESSMENT. INFORMED LEAH BENITEZ. BOGDAN (HOSPITALIST) CALLED AND STATED TO MONITOR PT AND ORDER CT TONIGHT IF PT WORSENS IN CONDITION. PT STATED THAT HE HAD GAS AND THAT RELIEVED SOME PAIN.
--- NOTE | 2023-04-29 22:57 | NUR ---
UPDATE PT GIVEN SIMETHICONE AND NOW STATES THAT HIS ABDOMINAL PAIN IS A 2/10.
[2023-04-30] VITALS (21 sets, daily range): BP systolic 102–175; BP diastolic 56–95
[2023-04-30 03:12] LABS: Hematocrit 34.9 % (37.0-53.0); Hemoglobin 12.1 g/dL (13.5-17.5); Mean Corpuscular HGB 31.4 pg (26.0-34.0); Mean Corpuscular HGB Conc 34.7 g/dL (31.5-36.5); Mean Corpuscular Volume 91 fL (80-100); Mean Platelet Volume 11.1 fL (9.1-12.4); Platelet Count 147 K/mm3 (150-400); RDW Coefficient Variation 13.4 % (11.7-14.2); Red Blood Cell Count 3.85 M/mm3 (4.30-5.90); White Blood Cell Count 9.47 K/mm3 (4.00-11.30)
[2023-04-30 03:44] LABS: Albumin, Blood 1.8 g/dL (3.4-5.0); Albumin/Globulin Ratio 0.5 (0.8-1.8); Bilirubin, Total 0.7 mg/dL (0.1-1.0); Bun/Creatinine Ratio 16.2 (12.0-20.0); Creatinine, Blood 3.52 mg/dL (0.60-1.20); Globulin, Blood 3.4 g/dL (2.2-4.0); Magnesium, Blood 1.6 mg/dL (1.6-2.4); Potassium, Blood 3.1 mmol/L (3.5-5.5); Total Protein, Blood 5.2 g/dL (6.4-8.2)
--- NOTE | 2023-04-30 05:45 | NUR ---
SHIFT SUMMARY PT SLEPT/RESTED QUIETLY T/O NIGHT. MINIMAL 2/10 ABDOMINAL PAIN SINCE SIMETHICONE ADMINISTRATION. SPO2 >92% ON 2L NC PT WEARS OXYGEN WHILE SLEEPING AT HOME. PT HAD A FEW EPISODES OF SINUS RAMONA T/O NIGHT, BUT WAS ASYMPTOMATIC AND MAINTAINED MAP >65. NO ACUTE EVENTS OVERNIGHT. SÁNCHEZ CATHETER PATENT AND DRAINING TO GRAVITY. HEPARIN INFUSING PER ORDER. IGNITION RISK EDUCATION GIVEN W/ HOURLY ROUNDING. PT DENIES HAVING ANY PARAPHERNILIA. PT WAS IN RECLINER WHOLE NIGHT. DECLINED WHEN ASKED IF HE WOULD LIKE TO MOVE TO BED. DECLINED MADDIE GRUBER, EDUCATED ON PURPOSE OF REPOSITIONING. STATES HE SLEEPS IN RECLINER AT HOME.
[2023-04-30 08:04] LABS: Albumin, Blood 1.7 g/dL (3.4-5.0); Anion Gap 11 mmol/L (6-16); Blood Urea Nitrogen 58 mg/dL (8-24); Bun/Creatinine Ratio 16.7 (12.0-20.0); CO2, Blood 18 mmol/L (21-32); Calcium, Blood 7.1 mg/dL (8.5-10.1); Chloride, Blood 99 mmol/L (98-108); Creatinine, Blood 3.47 mg/dL (0.60-1.20); Glomerular Filtration Rate 18 (60-); Glucose, Blood 110 mg/dL (70-99); Phosphorus, Blood 3.4 mg/dL (2.5-4.9); Potassium, Blood 3.3 mmol/L (3.5-5.5); Sodium, Blood 128 mmol/L (136-145)
--- NOTE | 2023-04-30 10:41 | NUR ---
Spiritual Care Visit. Pt. is awake and sitting in a recliner when he welcomes my visit. Pt. is pleasant. Facilitated a life review and established rapport. Both pt. and this air pollution engineer have many common relationships in the community. Pt. displayed evidence of awareness and engagement. Pt. displays evidence of great dipak. Prayed with Pt. When pts. son arrive this air pollution engineer excused himself. Pt. verbalized gratitude for the spiritual care visit.
--- NOTE | 2023-04-30 13:15 | NUR ---
WE HAVE BEEN TRYING TO DO A 24 HOUR URINE COLLECTION BUT BASIL HAS A DIFFICULT TIME WITH URGENCY AND BEING ABLE TO USE THE URINAL AT THE SAME TIME HIS BOWELS ARE TRYING TO WORK. WE HAVE BEEN UNABLE TO COLLECT IT USUALLY ENDS UP ON THE FLOOR. WILL START IT SOON ABLE TO COLLECT FIRST COMPLETE URINE OUTPUT.
--- NOTE | 2023-04-30 14:00 | NUR ---
BASIL WAS TRANSFERRED TO [facility] AROUND 1400. HE TOLERATED IT WELL AND WENT VIA RECLINER. ALL BELONGINGS WERE TAKEN TO THE ROOM. TALON KWOK WAS GIVEN REPORT.
--- NOTE | 2023-04-30 15:03 | NUR ---
I CALLED DR. DIEGO ABOUT THE PT'S 24HR URINE AND I ASKED IF HE WANTS A SÁNCHEZ DUE TO LOOSE STOOLS, CONTAMINATION, AND THE PT BEING INC. DR. DIEGO DOES NOT WANT A SÁNCHEZ AND HE DOES NOT WANT TO D/C THE ORDER. WE WILL CONTINUE TO TRY. A CONDOM CATH WILL NOT WORK WITH THE PT'S ANATOMY. WE TRIED AND WERE UNSUCCESSFUL.
--- NOTE | 2023-04-30 16:31 | NUR ---
PT C/O ABD PAIN. HE IS HAVING WATERY LOOSE STOOLS BOTH INC/CONT. PT MEDICATED WITH TYLENOL, TUMS, AND ZOFRAN. IT HAS PROVIDED SOME PAIN RELIEF.
--- NOTE | 2023-04-30 16:50 | NUR ---
PT IS AN ICU TX TO ROOM PCU 17 SHIFT SUMMARY PT CAME TO PCU 17 THIS AFTERNOON. PT IS A&OX4, SBA FOR LINE MANAGEMENT, AND HE CALLS APPROPRAITELY. HE HAS BEEN HAVING SOME ABD DISCOMFORT, SEE PREVIOUS NOTE FOR MORE INFORMATION. WE HAVE BEEN TRYING TO START THE 24HR URINE, BUT THE SAMPLE HAS BEEN CONTAMINATED OR FAMILY HAS BROUGHT THE PT TO THE BATHROOM WITH CALLING FOR HELP. EDUCATION HAS BEEN PROVIDED. ON TELE THE PT HAS BEEN AFLUTTER 80'S-90'S AND HE DENIES ANY ANGINA. PT HAS BEEN ON RA AND SP02 >90%. FAMILY AND PT ASSESSED AND EDUCATED ON FIRE IGNITION RISK AND SAFETY. NO ACUTE EVENTS.
[2023-05-01] VITALS (20 sets, daily range): BP systolic 99–220; BP diastolic 70–142
[2023-05-01 04:22] LABS: Hematocrit 34.1 % (37.0-53.0); Hemoglobin 12.2 g/dL (13.5-17.5); Mean Corpuscular HGB 31.7 pg (26.0-34.0); Mean Corpuscular HGB Conc 35.8 g/dL (31.5-36.5); Mean Corpuscular Volume 89 fL (80-100); Mean Platelet Volume 11.5 fL (9.1-12.4); Platelet Count 157 K/mm3 (150-400); RDW Coefficient Variation 13.1 % (11.7-14.2); RDW Standard Deviation 42.7 fL (35.1-46.3); Red Blood Cell Count 3.85 M/mm3 (4.30-5.90); White Blood Cell Count 7.19 K/mm3 (4.00-11.30)
[2023-05-01 04:56] LABS: Albumin, Blood 1.9 g/dL (3.4-5.0); Anion Gap 12 mmol/L (6-16); Blood Urea Nitrogen 67 mg/dL (8-24); Bun/Creatinine Ratio 20.5 (12.0-20.0); CO2, Blood 18 mmol/L (21-32); Calcium, Blood 7.5 mg/dL (8.5-10.1); Chloride, Blood 100 mmol/L (98-108); Creatinine, Blood 3.27 mg/dL (0.60-1.20); Glomerular Filtration Rate 19 (60-); Glucose, Blood 177 mg/dL (70-99); Magnesium, Blood 1.6 mg/dL (1.6-2.4); Phosphorus, Blood 3.2 mg/dL (2.5-4.9); Potassium, Blood 3.3 mmol/L (3.5-5.5); Sodium, Blood 130 mmol/L (136-145); Uric Acid, Blood 8.3 mg/dL (3.5-7.2)
--- NOTE | 2023-05-01 05:35 | NUR ---
0430 PT HAD A UNEVENTFUL NIGHT FOR MOST OF SHIFT. PT HAD BEEN RESTING IN CHAIR AND CALLING WHEN HE NEEDED HELP TO RESTROOM. THIS AM PT WAS YELLING OUT AND REQUESTING HELP TO BATHROOM. PT WAS FOUND TO BE MORE CONFUSED AND VERY WEAK. A CBG WAS OBTAINED AND WAS UNREMARKABLE. FOREST SCIENCE PROFESSOR CALLED AND INFORMED OF ST CHANGES ON MONITOR. A 12-LEAD WAS OBTAINED AND A RAPID RESPONSE WAS CALLED. SALT GRINDER ARRIVED WITH DR UNDERWOOD. PTWAS TREATED PER DR LIZ ORDERS. DR UNDERWOOD STATED PT WAS HAVING A STEMI AND PT NEEDED TO BE TRANSFERRED TO ARCHITECTURAL WOOD MODEL MAKER. PT WAS TRANSFERRED FROM PCU TO ICU. PT SON ELIZABETH WAS CALLED AND INFORMED OT PT'S STATUS AND NEW LOCATION.
--- NOTE | 2023-05-01 07:05 | NUR ---
ASSUMED CARE AT 0430 THIS RN WENT WITH CHARGE NURSE TO THE RAPID RESPONSE FOR THIS PT. PT WAS BROUGHT OVER TO ICU WHERE NITRO GTT WAS INITIATED AND DR OBRIEN CAME TO BEDSIDE AND PROVIDED ORDERS FOR FENTANYL Q2 MIN UNTIL CHEST PAIN MANAGED. PT WAS DIAPHORETIC AND VERY UNCOMFORTABLE. HE WAS THEN TAKEN TO SKID WORKER AT 0448.
--- NOTE | 2023-05-01 07:12 | NUR ---
RETURN TO ICU PT RETURNED TO ICU FROM DONOR SPECIALIST AT 0600. NO STENTS PLACED IN DONOR SPECIALIST. PT IS CONFUSED AND UNABLE TO KEEP A CONVERSATION; HE WILL REPEAT BACK WHAT SOMEONE IS SAYING AND OCCATIONALLY ANSWERS Y/N QUESTIONS. HE CONT TO BE IN PAIN, PRN FENTANYL AND DILAUDID GIVEN WITH MINIMAL RELIEF. SPO2 >98% ON 2L NC. AFIB NOTED WITH HR 100-120'S. BP CHALLENGING TO MANAGE, SBP 160-180'S; NITRO GTT TITRATED UP TO 15MCG/MIN; ACCESS DURING DONOR SPECIALIST WAS LT GROIN; ANGIO SEAL IN PLACE, AREA SHOWS NO SIGNS OF BLEEDING OR HEMATOMA. ABD IS TENDER TO TOUCH AND PAINFUL. PT OCCATIONALLY STATES THAT HE NEEDS TO URINATE, URINAL PLACED WITHOUT OUTPUT. HEPARIN INFUSING AT 16UNITS/KG/HR. REPORT GIVEN TO AM RN. DR DIEGO ASSESSED AT BEDSIDE AND PROVIDED NEW ORDERS FOR IV KCL. PT SON AT BEDSIDE TOO. HE ASKS QUESTIONS APPROPRIATLY BUT "STRESSED" OVER THE SITUATION. PT CONT TO BE FULL CODE AT THIS TIME.
[2023-05-01 08:06] LABS: Source, Urine Foley catheter
[2023-05-01 08:11] LABS: Appearance, Urine Hazy (Clear); Bilirubin, Urine Neg (Neg); Blood, Urine 4+ (Neg); Color, Urine Yellow (P-Yellow); Glucose Qualitative, Urine 3+ (Neg); Ketones, Urine Neg (Neg); Leukocyte Esterase, Urine Neg (Neg); Nitrite, Urine Neg (Neg); Protein, Urine 2+ (Neg); Specific Gravity, Urine 1.015 (1.003-1.022); Urobilinogen, Urine NORM (Normal)
[2023-05-01 08:18] LABS: Amorphous Mod (0-Heavy); Bacteria Rare /hpf; Squamous Epithelial Cells Not Seen /hpf (Few); White Blood Cells, Urine 0-2 /hpf (0-5)
--- NOTE | 2023-05-01 09:08 | NUR ---
Assumed care of pt at 0700. Report received from Martha HANLEY. Pt is alert. Does not answer questions asking date of , location, or today's date. Pt is constantly groaning, reporting pain to his abdomen. Call placed to Dr Dupree to notify provider of pt's pain, orders given for morphine. CT ABD w/o ordered. Pt taken for scan. Finally able to achieve pain relief for patient after a total of 8 mg morphine and 2 mg dilaudid. 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 Update given to Dr Dupont who arrived at bedside and discussed plan for CT ABD with contrast.
--- NOTE | 2023-05-01 10:59 | NUR ---
Spoke with Pt's Primary RN Randa and discussed case. Pt and family given poor prognosis by shed hand and goals of care conversation may be beneficial. Pt experiencing confusion. Pt initialy out of room to CT. Pt's son Elidia and Elidia's Valarie in room. Engaged in therapeutic conversation regarding goals of care. Discussed code status, educated on life sustaining treatments including risks and implications to CPR/Intubation. Discussed considering comfort care and educated on comfort care philosophy. Pt back to room moaning in pain. Dr Dupont in to speak with family. Family is agreeable to comfort care and code status of DNR. Offered therapeutic listening and answered questions. Placed comfort care order, comfort care order set, Ativan IV 1-2 mg every hour as needed for anxiety per V/O from Dr Dupont. Placed order for hyosciamine IV every 4 hours for abdominal pain per V/O from Dr Dupree. Palliative Care will remain available for symptom management and supportive visits.
--- NOTE | 2023-05-01 11:14 | NUR ---
"Spiritual Care | Comfort Care Family Support Pt. is on comfort care and is mostly non-responsive. DIL Valarie is present. Facilitate a life review and listen with a calming present and establish rapport. Pts. son arrives and displays evidence of emotion and grief. Pastoral care is given, and rapport is established with son. Addressed anticipatory grief. Some EOL education is given. Prayed for family. Family verbalized gratitude for the spiritual care visit. Will monitor family throughout the day and will remain available."
--- NOTE | 2023-05-01 11:51 | NUR ---
Patient is now comfort care. Currently laying on left side as this seems to be the most comfortable position for him. Has received many doses of opiate pain medication as well as hyoscyamine. Pt still has a grimace. Although sleeping, still moans/groans with exhalation. Family educated on parameters used for CPOT pain assessment and currently planning for morphine drip for pain management. Pt's son, Elidia, states that many family members have a high tolerance for pain meds.
--- NOTE | 2023-05-01 12:56 | NUR ---
Spoke with Primary RN Yasmine, Dr Dupree, [facility] pharmaicist sravan and discussed case. Started Pt on morphine drip to assist with pain management.
--- NOTE | 2023-05-01 17:09 | NUR ---
Comfort Care Visit Pt resting in bed with his eyes closed. Pt appears comfortable with no S/S of distress at this time. Family and friends at bedside. Offered supportive visit, therapeutic listening, and answered questions. Encouraged family to speak with Pt and offer reasurrance through the dying process. Palliative Care will remain available
--- NOTE | 2023-05-01 19:17 | NUR ---
"Spiritual Care CallBack | EOL education and services Pt. is comfort care and is not responsive. Family and friends are present and welcome this Phd Internship. Facilitate a lengthy life review. Family display evidence of acceptance and hope amid appropriate grief. Prayed for the family and gave a Bendiction blessing over the Pt. Spent significant time listening with empathy and a calming presence. Family requested I contact the Pts. synagogue. Family verbalized gratitude fore the spiritual care visit and support over the last couple days. Family chooses [facility] for their home for the Pt."
--- NOTE | 2023-05-01 19:31 | NUR ---
ASSUMED CARE PT COMFORT CARE STATUS. DOES NOT VERBALLY RESPOND OR OPEN EYES WITH LIGHT STIMULI. PT HAS SLIGHT GRIMACE, AND TENSES WHEN THIS RN MOVING ARM. FAMILY AND FRIENDS AT BEDSIDE. FAMILY CONCERNED WITH LAST PAIN MEDICATION GIVEN AT APPROX 1600. EDUCATED ON MORPHINE GTT AND PRN MEDICATIONS. PT MEDICATED PER EMAR. MORPHINE GTT AT 6MG/HR.
--- NOTE | 2023-05-01 19:31 | NUR ---
SUMMARY Patient is medical floor status w/o telemetry, comfort care. Morphine drip remains at 6 mg/hr. Requires intermittent doses of roxanol and ativan for continued comfort. Scopalamine patch behind L ear. Family at bedside for since status changed to comfort care. Pt has been obtunded since he has transitioned to comfort care. Major indications of pain have been grimace and audbile moan/groan.
--- NOTE | 2023-05-01 20:10 | NUR ---
NO IGNTION RISK. HOURLY ROUNDING DONE.
--- NOTE | 2023-05-01 21:03 | NUR ---
MORPHINE GTT HOSP CALLED TO CHANGE MORPHINE GTT TO CONT NUTRITION DIRECTOR AT 6MG/HR SO PT CAN BE TRANSFERRED TO MEDICAL FLOOR.
--- NOTE | 2023-05-01 22:31 | NUR ---
TRANSFER TO 302 REPORT GIVEN TO MARGIE HANLEY. PT TRANSFERRED TO 302 VIA BED WITH COMFORT CARE CART, PT BELONGINGS AND MEDICATIONS. FAMILY AT BEDSIDE AND WALKED TO NEW ROOM. CONTINUOUS MORPHINE COMPUTER COMPOSITOR REMAINS INFUSING.
--- NOTE | 2023-05-02 06:19 | NUR ---
SHIFT SUMMARY REPORT FROM ICU JUSTO RN- PT BROUGHT VIA FAMILY LUNA AT BEDSIDE, PT ON LOW PRESSURE BOILER TENDER PUMP- RATE AT 6MG/HR PT POSITIONED LEFT SIDE- GIVING ROXANOL ORAL FOR AIR HUNGER AND ATROPINE FOR INCREASED SECRETIONS, NO DEEP SUCTION DONE PER SON ELIZABETH, IGNITION ASSESSMENT DONE- FAMILY DENIED HAVING ANY IGNITION ITEMS- PT UNRESPONSIVE- MEDICATED SEVERAL TIMES IN THE NIGHT WITH ROXANOL 20MG AND ATIVAN 2MG IV- FAMILY REQUESTED TO CONTINUE TO KEEP PT COMFORTABLE, SPOKE WITH FAMILY ABOUT LIMITING REPOSITIONING THE PATIENT- CONCERNS OF INCREASED SECRETIONS WITH EACH MOVEMENT- S[place]NCHEZ CATH IN PLACE- LOW PRESSURE BOILER TENDER PUMP CLEARED THIS AM WITH BJ FERMIN CHARGE NURSE- FAMILY AT BEDSIDE
--- NOTE | 2023-05-02 12:40 | NUR ---
DISCHARGE SUMMARY PT DISCHARGED TO HOME. SHANA MORROW FROM HOME PICKED UP PATIENT VIA [facility]. FACE SHEET GIVEN. PT LEFT ROOM AT 1220. NO IV IN PLACE AT TIME OF DC.
== END 2023-05-02 06:52 | DRG 356 ==
LOC: ER 12:00 → PCU 12:01 → ICUE 04-27 14:50 → PCU 04-27 14:50 → ICUE 04-27 21:47 → PCU 04-30 14:06 → ICUE 05-01 04:39 → MEDS 05-01 22:20 → ENPENDDIS 05-02 10:19
PROVIDERS: Internal Medicine; Internal Medicine Nephrology; Student in an Organized Health Care Education/Training Program; Surgery; ADMIT Internal Medicine
PROC: 0T9B70Z Drainage of Bladder with Drainage Device, Via Natural or Artificial Opening (ICD-10-PCS; 2023-04-27)
PROC: 04753ZZ Dilation of Superior Mesenteric Artery, Percutaneous Approach (ICD-10-PCS; principal; 2023-04-28)
PROC: 04C53ZZ Extirpation of Matter from Superior Mesenteric Artery, Percutaneous Approach (ICD-10-PCS; 2023-04-28)
PROC: B2111ZZ Fluoroscopy of Multiple Coronary Arteries using Low Osmolar Contrast (ICD-10-PCS; 2023-04-28)
PROC: B2181ZZ Fluoroscopy of Left Internal Mammary Bypass Graft using Low Osmolar Contrast (ICD-10-PCS; 2023-04-28)
PROC: 3E05317 Introduction of Other Thrombolytic into Peripheral Artery, Percutaneous Approach (ICD-10-PCS; 2023-04-28)
PROC: B2121ZZ Fluoroscopy of Single Coronary Artery Bypass Graft using Low Osmolar Contrast (ICD-10-PCS; 2023-04-28)
DX: K55.029 Acute infarction of small intestine, extent unspecified (principal); I21.19 ST elevation (STEMI) myocardial infarction involving other coronary artery of inferior wall; I50.23 Acute on chronic systolic (congestive) heart failure; E87.1 Hypo-osmolality and hyponatremia; N17.9 Acute kidney failure, unspecified; I13.0 Hypertensive heart and chronic kidney disease with heart failure and stage 1 through stage 4 chronic kidney disease, or unspecified chronic kidney disease; I48.20 Chronic atrial fibrillation, unspecified; E87.20 Acidosis, unspecified; K80.20 Calculus of gallbladder without cholecystitis without obstruction; I16.0 Hypertensive urgency; Z51.5 Encounter for palliative care; E78.5 Hyperlipidemia, unspecified; K76.0 Fatty (change of) liver, not elsewhere classified; E87.6 Hypokalemia; I25.10 Atherosclerotic heart disease of native coronary artery without angina pectoris; N18.30 Chronic kidney disease, stage 3 unspecified; E11.22 Type 2 diabetes mellitus with diabetic chronic kidney disease; D63.1 Anemia in chronic kidney disease; E66.01 Morbid (severe) obesity due to excess calories; G47.33 Obstructive sleep apnea (adult) (pediatric); B02.9 Zoster without complications; K63.5 Polyp of colon; N40.0 Benign prostatic hyperplasia without lower urinary tract symptoms; Z95.1 Presence of aortocoronary bypass graft; Z90.49 Acquired absence of other specified parts of digestive tract; Z79.4 Long term (current) use of insulin; Z87.39 Personal history of other diseases of the musculoskeletal system and connective tissue; Z79.01 Long term (current) use of anticoagulants; Z79.899 Other long term (current) drug therapy; Z88.8 Allergy status to other drugs, medicaments and biological substances; Z99.89 Dependence on other enabling machines and devices
CPT/HCPCS: 36415; 36416; 51702; 70450; 74019; 74174; 74176; 74177; 76705; 76770; 76937; 80048; 80053; 80069; 81001; 82550; 82947; 83605; 83690; 83735; 84443; 84484; 84550; 85025; 85027; 85347; 85520; 85610; 85730; 87040; 93005; 93010; 93306; 93455; 93458; 94762; 96361; 96374-59; 96375; 96376; 97110; 97162; 97166; 97530; 99152; 99153; 99285-25; A9270; C1725; C1751; C1757; C1760; C1769; C1887; C1894; C9113; G0378; J0360; J0612; J1170; J1644; J1815; J1885; J1940; J1980; J2060; J2250; J2270; J2405; J2997; J3010; J3480; J7030; J7050; Q9967